=== PATIENT | female | born 1935 | race Caucasian/White ===

== ENCOUNTER → 2017-10-02 | Outpatient (CLI) | payer MEDICARE, OTHER ==
[~2017-10-02] MED LIST: CALC1TAB PO; FLUO20CA8 PO; HYDR-3237 PO; LEVO88TA4 PO; LOSA1TAB22 PO; PRAV40TA2 PO; THYROID PO
== END | disposition home or self-care (01) ==
LOC: CFH 11:38
PROVIDERS: ATTEND Internal Medicine
DX: Z12.31 Encounter for screening mammogram for malignant neoplasm of breast (principal); Z85.3 Personal history of malignant neoplasm of breast
CPT/HCPCS: G0202

== ENCOUNTER → 2018-04-23 | Outpatient (CLI) | payer MEDICARE, OTHER ==
[~2018-04-23] MED LIST changes: +ENOX80SY4 SQ; +WARF3TAB PO-COUM
== END | disposition home or self-care (01) ==
LOC: CFH 13:09
PROVIDERS: ATTEND Internal Medicine
DX: I25.10 Atherosclerotic heart disease of native coronary artery without angina pectoris (principal); I51.7 Cardiomegaly; R91.8 Other nonspecific abnormal finding of lung field; Z85.3 Personal history of malignant neoplasm of breast
CPT/HCPCS: 71250

== ENCOUNTER 2018-05-29 07:33 | Observation (INO) | payer MEDICARE, OTHER ==
[2018-05-25 10:49] VITALS: BP 149/79
[~2018-05-29] VITALS: Ht 157.5 cm; Wt 76.0 kg
[~2018-05-29 07:33] MED LIST changes: +ATOR40TA78 PO; +LOSA1TAB19 PO; +WARF2.5T PO; +WARF5TAB PO
[2018-05-29] MEDS ORDERED: LACTATED RINGERS 1,000 ML IV SCH (07:55)
[2018-05-29] MEDS ORDERED: LIDOCAINE-MPF 1%, 2ML INFIL ONE (08:00)
[2018-05-29 08:26] LABS: INTERNATIONAL NORMALIZED RATIO 1.55 (0.93-1.1); PROTHROMBIN TIME 15.8 Seconds (9.6-11.5)
[2018-05-29] MEDS ORDERED: FENTANYL PF 100 MCG/2ML ONE (09:41)
[2018-05-29] MEDS ORDERED: ONDANSETRON 2MG/ML, 2ML ONE (10:41)
[2018-05-29] MEDS ORDERED: PROPOFOL 10 MG/ML, 20ML ONE (10:41)
[2018-05-29] MEDS ORDERED: ROCURONIUM 10 MG/ML,10ML ONE (10:41)
[2018-05-29] MEDS ORDERED: SUCCINYLCHOLINE 20 MG/ML, 10ML ONE (10:41)
[2018-05-29] MEDS ORDERED: DEXAMETHASONE 4 MG/ML, 1ML ONE (10:50)
[2018-05-29] MEDS ORDERED: MORPHINE SULFATE 4 MG/ML, 1ML IVPush PRN (11:30)
[2018-05-29] MEDS ORDERED: hydrALAzine 20 MG/ML, 1ML IV PRN (11:30)
[2018-05-29] MEDS ORDERED: FENTANYL PF 100 MCG/2ML IV PRN (11:30)
[2018-05-29] MEDS ORDERED: ACETAMINOPHEN 325 MG TABLET PO PRN ×2 (11:30→17:00)
[2018-05-29] MEDS ORDERED: OXYcodone 5 MG/5 ML ORAL.SOL UDC PO PRN (11:30)
[2018-05-29] MEDS ORDERED: ONDANSETRON 2MG/ML, 2ML IV PRN (11:30)
[2018-05-29] MEDS ORDERED: PROMETHAZINE 25 MG/ML, 1ML IV PRN (11:30)
[2018-05-29] MEDS ORDERED: LABETALOL 5MG/ML, 20ML IV PRN (11:30)
[2018-05-29] MEDS ORDERED: ACETAMINOPHEN 325 MG TABLET PO ONE (13:30)
[2018-05-29] MEDS ORDERED: ALBUTEROL SULFATE 2.5 MG/3 ML NPPB ONE (15:00)
[2018-05-29] MEDS ORDERED: ALBUTEROL/IPRATROPIUM 2.5MG/0.5MG, 3 ML ONE (15:04)
[2018-05-29 17:00] VITALS: BP 121/67
[2018-05-29 20:22] VITALS: BP 114/57
[2018-05-29] MEDS ORDERED: ATORVASTATIN 40 MG TABLET PO SCH (21:00)
[2018-05-30 00:57] VITALS: BP 118/64
[2018-05-30 04:12] VITALS: BP 139/73
[2018-05-30] MEDS ORDERED: LEVOTHYROXINE 88 MCG TABLET PO SCH (06:00)
[2018-05-30] MEDS ORDERED: CALCIUM/VITAMIN D3 250-125 TABLET PO SCH (09:00)
[2018-05-30] MEDS ORDERED: HYDROCHLOROTHIAZIDE 12.5 MG CAPSULE PO SCH (09:00)
[2018-05-30] MEDS ORDERED: FLUOXETINE HCL 20 MG CAPSULE PO SCH (09:00)
[2018-05-30] MEDS ORDERED: LOSARTAN 50MG TABLET PO SCH (09:00)
[2018-05-30 09:06] VITALS: BP 121/59
[2018-05-30] MEDS ORDERED: WARFARIN 2.5 MG TABLET PO-COUM ONE (18:00)
== END 2018-05-30 10:30 | disposition home or self-care (01) ==
LOC: OUT 07:33 → 4NOR 16:32
PROVIDERS: ADMIT Internal Medicine; ATTEND Internal Medicine
DX: C34.2 Malignant neoplasm of middle lobe, bronchus or lung (principal); J98.09 Other diseases of bronchus, not elsewhere classified; E03.9 Hypothyroidism, unspecified; G47.36 Sleep related hypoventilation in conditions classified elsewhere
CPT/HCPCS: 31623; 31626; 31628; 36415; 71045; 71250; 76001; 85610; 85730; 88108; 88172; 88173; 88177; 88305; 88341; 88342; 94640; A4648; G0378; J0330; J1100; J2405; J2704; J3010; J7120; J7613; G0461

== ENCOUNTER → 2018-10-01 | Outpatient (CLI) | payer MEDICARE, OTHER | END | disposition home or self-care (01) | LOC: CFH 09:51 | PROVIDERS: ATTEND Radiology Radiation Oncology | DX: C34.90 Malignant neoplasm of unspecified part of unspecified bronchus or lung (principal); R91.1 Solitary pulmonary nodule; M48.54XA Collapsed vertebra, not elsewhere classified, thoracic region, initial encounter for fracture; Z85.3 Personal history of malignant neoplasm of breast | CPT/HCPCS: 71250 ==

== ENCOUNTER → 2018-10-02 | Outpatient (CLI) | payer MEDICARE, OTHER | END | disposition home or self-care (01) | LOC: ROC 08:05 | PROVIDERS: ATTEND Radiology Radiation Oncology | DX: Z08 Encounter for follow-up examination after completed treatment for malignant neoplasm (principal); C34.2 Malignant neoplasm of middle lobe, bronchus or lung | CPT/HCPCS: G0463 ==

== ENCOUNTER → 2019-01-26 | Outpatient (CLI) | payer MEDICARE, OTHER | END | disposition home or self-care (01) | LOC: CFH 10:10 | PROVIDERS: ATTEND Radiology Radiation Oncology | DX: C34.2 Malignant neoplasm of middle lobe, bronchus or lung (principal); I11.9 Hypertensive heart disease without heart failure; I25.10 Atherosclerotic heart disease of native coronary artery without angina pectoris; Z85.3 Personal history of malignant neoplasm of breast; Z90.11 Acquired absence of right breast and nipple; Z87.891 Personal history of nicotine dependence | CPT/HCPCS: 71250 ==

== ENCOUNTER → 2019-01-27 | Outpatient (CLI) | payer MEDICARE, OTHER | END | disposition home or self-care (01) | LOC: ROC 08:27 | PROVIDERS: ATTEND Radiology Radiation Oncology | DX: C34.2 Malignant neoplasm of middle lobe, bronchus or lung (principal); Z87.891 Personal history of nicotine dependence | CPT/HCPCS: G0463 ==

== ENCOUNTER → 2019-02-23 | Outpatient (CLI) | payer MEDICARE, OTHER | END | disposition home or self-care (01) | LOC: CFH 10:43 | PROVIDERS: ATTEND Internal Medicine | DX: Z12.31 Encounter for screening mammogram for malignant neoplasm of breast (principal); M89.9 Disorder of bone, unspecified; N95.1 Menopausal and female climacteric states | CPT/HCPCS: 77063; 77067; 77080 ==

== ENCOUNTER 2019-05-26 18:15 | Inpatient (IN) | payer MEDICARE, OTHER ==
[~2019-05-26] VITALS: Ht 160 cm; Wt 76.6 kg
--- NOTE | 2019-05-26 18:27 | NUR ---
BIB [facility] AFTER MECHANICAL [facility]. DENIES DIZZINES, TRIPPED ON CARPET AFTER SHOWER. NO LOC. PAIN TO LEFT HIP WHEN MOVING OR TOUCH. CONNECTED TO ALL MONITORING. CALL LIGHT IN REACH. FAMILY AT BEDSIDE.
[2019-05-26] MEDS ORDERED: ACETAMINOPHEN 325 MG TABLET PO ONE (18:30)
--- NOTE | 2019-05-26 18:37 | NUR ---
UA COLLECTED AND SENT TO LAB.
[2019-05-26 18:50] LABS: CULTURE INDICATED? YES; MICROSCOPIC INDICATED
[2019-05-26 19:04] LABS: BASOPHILS % (AUTO) 0 % (0-1); EOSINOPHILS # (AUTO) 0.11 x10^3/uL (0-0.4); EOSINOPHILS % (AUTO) 1 % (1-7); LYMPHOCYTES # (AUTO) 0.66 x10^3/uL (1-3.4); LYMPHOCYTES % (AUTO) 7 % (22-44); MD NO; MEAN CORPUSCULAR HEMOGLOBIN 30.4 pg (27.0-34.8); MEAN CORPUSCULAR HGB CONC 33.4 g/dL (32.4-35.8); MEAN CORPUSCULAR VOLUME 90.9 fL (80-100); MEAN PLATELET VOLUME 7.4 fL (7.4-10.4); MONOCYTES # (AUTO) 0.55 x10^3/uL (0.2-0.8); MONOCYTES % (AUTO) 6 % (2-9); NEUTROPHILS # (AUTO) 7.93 x10^3/uL (1.8-6.8); NEUTROPHILS % (AUTO) 86 % (42-75); PLATELET COUNT 245 x10^3/uL (130-400); RED BLOOD COUNT 4.45 x10^6/uL (3.82-5.3)
[2019-05-26 19:12] LABS: ALBUMIN 3.6 g/dL (3.4-5.0); ANION GAP 12 mmol/L (5-15); CALCIUM 9.2 mg/dL (8.5-10.1); CHLORIDE 107 mmol/L (98-107); CREATININE 1.62 mg/dL (0.55-1.02)
--- NOTE | 2019-05-26 19:30 | NUR ---
PT TO RADIOLOGY.
[2019-05-26] MEDS ORDERED: SODIUM CHLORIDE 0.9% 1,000 ML IV ONE (19:44)
[2019-05-26] MEDS ORDERED: CEFTRIAXONE PMX 1GM/50ML 50 ML ONE (19:51)
[2019-05-26] MEDS ORDERED: ACETAMINOPHEN 500 MG TABLET ONE (19:51)
[2019-05-26] MEDS ORDERED: CEFTRIAXONE PMX 1GM/50ML 50 ML IVPB ONE (20:00)
--- NOTE | 2019-05-26 20:12 | NUR ---
ABX AND FLUIDS ADMINISTERED PER TINY. DENIES PAIN. VSS. PT TALKING WITH FAMILY. AWAITING ATMIT ORDERS. Addendum: 05/26/19 at [address], THEN ADMIT ORDERS.
--- NOTE | 2019-05-26 20:26 | NUR ---
PT TAKEN TO CT. FAMILY AT BEDSIDE. PT ALERT AND TALKING WITH FAMILY.
[2019-05-26 20:59] LABS: INTERNATIONAL NORMALIZED RATIO 1.89 (0.93-1.1); PROTHROMBIN TIME 19.4 Seconds (9.6-11.5)
--- NOTE | 2019-05-26 21:17 | NUR ---
ALL RESULTS BACK AT THIS TIME, CHART UP FOR RECHECK
--- NOTE | 2019-05-26 21:49 | NUR ---
MD TO BEDSIDE TO UPDATE PT AND FAMILY ON POC. PT TO BE ADMITTED TO [facility]
--- NOTE | 2019-05-26 22:15 | NUR ---
HOSPITALIST AT BEDSIDE FOR ADMIT ASSESSMENT.
[2019-05-26] MEDS ORDERED: POLYETHYLENE GLYCOL 17 GM PACKET PO PRN (22:30)
[2019-05-26] MEDS ORDERED: morphine SULFATE 10 MG/ML, 1ML IVPush PRN (22:30)
[2019-05-26] MEDS ORDERED: OXYcodone IR 5MG TABLET PO PRN (22:30)
[2019-05-26] MEDS ORDERED: BISACODYL 10 MG SUPP PR PRN (22:30)
[2019-05-26] MEDS ORDERED: ACETAMINOPHEN 325 MG TABLET PO PRN (22:30)
[2019-05-26] MEDS ORDERED: ONDANSETRON ODT 4 MG PO PRN (22:30)
--- NOTE | 2019-05-26 22:51 | NUR ---
REPORT CORNELIO LYON.
[2019-05-27] MEDS: SODIUM CHLORIDE 0.9% 1,000 ML IV SCH ×2 (00:06→09:29)
[2019-05-27] MEDS: FLUOXETINE HCL 20 MG CAPSULE PO SCH ×2 (00:52→19:53)
[2019-05-27] MEDS: ATORVASTATIN 40 MG TABLET PO SCH ×2 (00:52→19:53)
[2019-05-27] MEDS: LEVOTHYROXINE 88 MCG TABLET PO SCH (05:51)
[2019-05-27 06:16] LABS: BASOPHILS % (AUTO) 0 % (0-1); EOSINOPHILS # (AUTO) 0.02 x10^3/uL (0-0.4); EOSINOPHILS % (AUTO) 0 % (1-7); LYMPHOCYTES # (AUTO) 0.97 x10^3/uL (1-3.4); LYMPHOCYTES % (AUTO) 15 % (22-44); MD NO; MEAN CORPUSCULAR HEMOGLOBIN 30.3 pg (27.0-34.8); MEAN CORPUSCULAR HGB CONC 33.5 g/dL (32.4-35.8); MEAN CORPUSCULAR VOLUME 90.4 fL (80-100); MEAN PLATELET VOLUME 7.5 fL (7.4-10.4); MONOCYTES # (AUTO) 0.77 x10^3/uL (0.2-0.8); MONOCYTES % (AUTO) 12 % (2-9); NEUTROPHILS # (AUTO) 4.86 x10^3/uL (1.8-6.8); NEUTROPHILS % (AUTO) 73 % (42-75); PLATELET COUNT 200 x10^3/uL (130-400); RED BLOOD COUNT 3.87 x10^6/uL (3.82-5.3); RED CELL DISTRIBUTION WIDTH 14.9 % (9.6-15.2)
[2019-05-27 06:20] LABS: ALANINE AMINOTRANSFERASE 19 U/L (12-78); ALBUMIN 2.7 g/dL (3.4-5.0); ANION GAP 6 mmol/L (5-15); CALCIUM 8.1 mg/dL (8.5-10.1); CHLORIDE 114 mmol/L (98-107); CREATININE 1.32 mg/dL (0.55-1.02)
[2019-05-27 06:22] LABS: ALKALINE PHOSPHATASE 99 U/L (45-117); BILIRUBIN,TOTAL 0.5 mg/dL (0.2-1.0)
[2019-05-27 06:47] VITALS: BP 134/72
[2019-05-27] MEDS: SENNA/DOCUSATE TABLET PO SCH (09:29)
[2019-05-27] MEDS: CALCIUM/VITAMIN D3 250-125 TABLET PO SCH (09:29)
[2019-05-27] MEDS: HEPARIN 5,000 UNITS/ML, 1ML SQ SCH ×2 (11:55→19:53)
[2019-05-27 13:52] VITALS: BP 106/61
[2019-05-27] MEDS: CEFTRIAXONE PMX 1GM/50ML 50 ML IV SCH (19:52)
[2019-05-27 20:13] VITALS: BP 130/69
[2019-05-28 01:07] VITALS: BP 120/64
[2019-05-28] MEDS: LEVOTHYROXINE 88 MCG TABLET PO SCH (05:00)
[2019-05-28] MEDS: HEPARIN 5,000 UNITS/ML, 1ML SQ SCH ×3 (05:00→22:50)
[2019-05-28 05:48] LABS: ANION GAP 5 mmol/L (5-15); CALCIUM 7.9 mg/dL (8.5-10.1); CHLORIDE 112 mmol/L (98-107)
[2019-05-28 05:49] LABS: CREATININE 1.04 mg/dL (0.55-1.02)
[2019-05-28 08:00] VITALS: BP 124/74
[2019-05-28 13:36] VITALS: BP 116/65
[2019-05-28] MEDS: CALCIUM/VITAMIN D3 250-125 TABLET PO SCH (14:51)
[2019-05-28] MEDS: SENNA/DOCUSATE TABLET PO SCH (14:51)
[2019-05-28] MEDS: CEFTRIAXONE PMX 1GM/50ML 50 ML IV SCH (20:57)
[2019-05-28] MEDS: FLUOXETINE HCL 20 MG CAPSULE PO SCH (20:57)
[2019-05-28] MEDS: ATORVASTATIN 40 MG TABLET PO SCH (20:57)
[2019-05-28 21:01] VITALS: BP 128/74
[2019-05-29 02:03] VITALS: BP 120/63
[2019-05-29] MEDS: LEVOTHYROXINE 88 MCG TABLET PO SCH (05:53)
[2019-05-29 08:09] VITALS: BP 145/76
[2019-05-29] MEDS: SENNA/DOCUSATE TABLET PO SCH (11:02)
[2019-05-29] MEDS: CALCIUM/VITAMIN D3 250-125 TABLET PO SCH (11:02)
[2019-05-29] MEDS: HEPARIN 5,000 UNITS/ML, 1ML SQ SCH ×2 (11:02→19:32)
[2019-05-29 14:21] VITALS: BP 124/74
[2019-05-29] MEDS: CEFTRIAXONE PMX 1GM/50ML 50 ML IV SCH (20:17)
[2019-05-29 20:26] VITALS: BP 113/74
[2019-05-29] MEDS: FLUOXETINE HCL 20 MG CAPSULE PO SCH (20:49)
[2019-05-29] MEDS: ATORVASTATIN 40 MG TABLET PO SCH (20:49)
[2019-05-30 01:34] VITALS: BP 122/63
[2019-05-30] MEDS: LEVOTHYROXINE 88 MCG TABLET PO SCH (05:14)
[2019-05-30] MEDS: HEPARIN 5,000 UNITS/ML, 1ML SQ SCH ×2 (05:15→13:32)
[2019-05-30 05:50] LABS: BASOPHILS # (AUTO) 0.02 x10^3/uL (0-0.1); BASOPHILS % (AUTO) 0 % (0-1); EOSINOPHILS # (AUTO) 0.07 x10^3/uL (0-0.4); EOSINOPHILS % (AUTO) 1 % (1-7); LYMPHOCYTES # (AUTO) 1.37 x10^3/uL (1-3.4); LYMPHOCYTES % (AUTO) 22 % (22-44); MD NO; MEAN CORPUSCULAR HEMOGLOBIN 29.6 pg (27.0-34.8); MEAN CORPUSCULAR HGB CONC 32.9 g/dL (32.4-35.8); MEAN CORPUSCULAR VOLUME 89.8 fL (80-100); MEAN PLATELET VOLUME 7.6 fL (7.4-10.4); MONOCYTES # (AUTO) 0.69 x10^3/uL (0.2-0.8); MONOCYTES % (AUTO) 11 % (2-9); NEUTROPHILS % (AUTO) 65 % (42-75); PLATELET COUNT 216 x10^3/uL (130-400); RED BLOOD COUNT 3.59 x10^6/uL (3.82-5.3); RED CELL DISTRIBUTION WIDTH 14.5 % (9.6-15.2)
[2019-05-30 05:55] LABS: ALBUMIN 2.3 g/dL (3.4-5.0); ANION GAP 3 mmol/L (5-15); CALCIUM 8.5 mg/dL (8.5-10.1); CHLORIDE 111 mmol/L (98-107); CREATININE 1.15 mg/dL (0.55-1.02)
[2019-05-30 06:47] VITALS: BP 129/71
[2019-05-30] MEDS ORDERED: TRAM50TA2 PO (07:42)
[2019-05-30] MEDS ORDERED: CEFD300C37 PO (07:42)
[2019-05-30] MEDS: CALCIUM/VITAMIN D3 250-125 TABLET PO SCH (09:00)
[2019-05-30] MEDS: SENNA/DOCUSATE TABLET PO SCH (09:00)
[2019-05-30 14:19] VITALS: BP 127/74
[2019-05-30] MEDS ORDERED: ENOX40SY4 SQ ×2 (14:47→14:48)
== END 2019-05-30 15:15 | DRG 542 ==
LOC: ED 18:56 → EDIP 21:46 → 3NE 23:49
PROVIDERS: ADMIT Family Medicine; ATTEND Family Medicine
PROC: 0T9B70Z Drainage of Bladder with Drainage Device, Via Natural or Artificial Opening (ICD-10-PCS; principal; 2019-05-26)
DX: M80.052A Age-related osteoporosis with current pathological fracture, left femur, initial encounter for fracture (principal); N17.0 Acute kidney failure with tubular necrosis; N39.0 Urinary tract infection, site not specified; C34.90 Malignant neoplasm of unspecified part of unspecified bronchus or lung; B96.20 Unspecified Escherichia coli [E. coli] as the cause of diseases classified elsewhere; E78.00 Pure hypercholesterolemia, unspecified; E78.5 Hyperlipidemia, unspecified; I10 Essential (primary) hypertension; W01.0XXA Fall on same level from slipping, tripping and stumbling without subsequent striking against object, initial encounter; E03.9 Hypothyroidism, unspecified; Y93.01 Activity, walking, marching and hiking; Z66 Do not resuscitate; Z79.01 Long term (current) use of anticoagulants; Z85.3 Personal history of malignant neoplasm of breast; Z85.118 Personal history of other malignant neoplasm of bronchus and lung; Z86.711 Personal history of pulmonary embolism; Z86.718 Personal history of other venous thrombosis and embolism; Y92.89 Other specified places as the place of occurrence of the external cause; Z87.891 Personal history of nicotine dependence; Z90.10 Acquired absence of unspecified breast and nipple; Z92.3 Personal history of irradiation; Z99.81 Dependence on supplemental oxygen
CPT/HCPCS: 36415; 72110; 72192; 80048; 80053; 81001; 82040; 85025; 85610; 87040; 87077; 87086; 87186; 96365; 96366; G0378; J0696; J1644; J7030

== ENCOUNTER 2019-08-03 10:50 | Outpatient (CLI) | payer MEDICARE, OTHER ==
[~2019-08-03 10:50] MED LIST changes: +CEFD300C37 PO; +ENOX40SY4 SQ; +TRAM50TA2 PO
== END 2019-08-03 23:59 | disposition home or self-care (01) ==
LOC: CFH 10:50
PROVIDERS: ATTEND Radiology Radiation Oncology
DX: C34.2 Malignant neoplasm of middle lobe, bronchus or lung (principal); J98.4 Other disorders of lung; Z87.891 Personal history of nicotine dependence; Z85.3 Personal history of malignant neoplasm of breast; Z85.118 Personal history of other malignant neoplasm of bronchus and lung; Z83.3 Family history of diabetes mellitus; Z82.5 Family history of asthma and other chronic lower respiratory diseases
CPT/HCPCS: 71250

== ENCOUNTER → 2019-09-16 | Outpatient (CLI) | payer MEDICARE, OTHER | END | disposition home or self-care (01) | LOC: ROC 09:21 | PROVIDERS: ATTEND Radiology Radiation Oncology | DX: C34.2 Malignant neoplasm of middle lobe, bronchus or lung (principal) | CPT/HCPCS: G0463 ==

== ENCOUNTER 2020-01-25 12:16 | Outpatient (CLI) | payer MEDICARE, OTHER ==
[~2020-01-25 12:16] MED LIST changes: +FLUO20CA23 PO; -FLUO20CA8 PO
== END 2020-01-25 23:59 | disposition home or self-care (01) ==
LOC: CFH 12:16
PROVIDERS: ATTEND Radiology Radiation Oncology
DX: C34.2 Malignant neoplasm of middle lobe, bronchus or lung (principal); J98.11 Atelectasis; I10 Essential (primary) hypertension
CPT/HCPCS: 71250

== ENCOUNTER → 2020-08-10 | Outpatient (CLI) | payer MEDICARE, OTHER ==
[~2020-08-10] MED LIST changes: -WARF2.5T PO; +WARF2.5T2 PO; -WARF5TAB PO; +WARF5TAB2 PO
== END | disposition home or self-care (01) ==
LOC: CFH 12:21
PROVIDERS: ATTEND Radiology Radiation Oncology
DX: C34.2 Malignant neoplasm of middle lobe, bronchus or lung (principal); R91.8 Other nonspecific abnormal finding of lung field; R91.1 Solitary pulmonary nodule
CPT/HCPCS: 71250

== ENCOUNTER → 2020-09-11 | Outpatient (CLI) | payer MEDICARE, OTHER | END | disposition home or self-care (01) | LOC: ROC 09:47 | PROVIDERS: ATTEND Radiology Radiation Oncology | DX: Z08 Encounter for follow-up examination after completed treatment for malignant neoplasm (principal); Z85.118 Personal history of other malignant neoplasm of bronchus and lung | CPT/HCPCS: G2012 ==